=== PATIENT | male | born 1990 | race Caucasian/White ===

== ENCOUNTER 2016-10-12 06:34 | Emergency (ER) | payer OTHER ==
[~2016-10-12] VITALS: Ht 185.4 cm; Wt 144.1 kg
[~2016-10-12 06:34] MED LIST: BACT800T5 PO; CEPH-460 PO
[2016-10-12 06:40] VITALS: BP 157/110; PULSE 92; RESP 16; TEMP 98.7; O2SAT 99
[2016-10-12] MEDS ORDERED: CLIN1CAP5 PO (07:31)
--- NOTE | 2016-10-12 07:52 | PD ---
HPI Chief Complaint: Skin Problem Time Seen by Provider: 07:21 Travel History International Travel<30 days: No Contact w/Intl Traveler<30days: No Traveled to known affect area: No History of Present Illness HPI This patient was seen here 2 days ago for a infected area near his left wrist. He reports that it is spreading. He was prescribed 2 different antibiotics. He filled the Bactrim but not the Keflex. Denies fever or drainage. Symptoms severity is mild to moderate PFSH Past Medical History Tetanus Vaccination: Unknown Social History Alcohol Use: No Tobacco Use: No Substance Use: No Allergies-Medications (Allergen,Severity, Reaction): Coded Allergies: No Known Allergies (Unverified , 10/12/16) Reported Meds & Prescriptions Reported Meds & Active Scripts Active Clindamycin (Clindamycin HCl) 150 Mg Cap 300 Mg PO Q6H Keflex (Cephalexin) 500 Mg Cap 500 Mg PO Q6H 10 Days Bactrim DS (Sulfamethoxazole-Trimethoprim) 800-160 Mg Tab 1 Tab PO BID Review of Systems General / Constitutional: No: Fever HENT: No: Headaches Physical Exam Narrative Psych: Normal mood and affect. Normal insight and judgment. SKIN: Inspection shows no rash or ulcers. Palpation shows no induration or nodules. Left wrist: There is an area of macular erythema over the left wrist. There is a central small indurated area. No fluctuance or drainage. Good range of motion of the wrist. No clinical suspicion of septic joint at the wrist. There is no lymphangitis. Data Data Last Documented VS Vital Signs Date Time Temp Pulse Resp B/P Pulse Ox O2 Delivery O2 Flow Rate FiO2 10/12/16 06:40 98.7 92 16 157/110 99 Room Air MDM Medical Decision Making Medical Screen Exam Complete: Yes Emergency Medical Condition: Yes Medical Record Reviewed: Yes Differential Diagnosis Cellulitis, septic joint, abscess Narrative Course I have reviewed the patient's electronic medical record. Reviewed his visit from 2 days ago. He is currently taking Bactrim. I've added clindamycin as he reports worsening. No septic joint and nothing amenable to incision and drainage. There is mostly macular erythema that seems quite superficial with a central small indurated area Advised to return if this continues to worsen and recommend Worker's Comp. follow-up as this is filed under Worker's Comp. claim Diagnosis Primary Impression: Insect bite of wrist, left, infected Qualified Code: S60.862D - Insect bite of wrist, left, infected, subsequent encounter Additional Instructions: The patient was advised to follow up with their physician and return if they worsen. Med/Other Pt SpecificInfo: Prescription(s) given Scripts Clindamycin 150 Mg [id number] Mg PO Q6H #28 CAP Ref 0 Prov:Umesh Garcia MD 10/12/16 Disposition: 01 DISCHARGE HOME Condition: Stable Umesh Garcia MD Oct 12, 2016 07:52
== END 2016-10-12 07:57 | disposition home or self-care (01) ==
LOC: PHED 06:34
DX: S60.862A Insect bite (nonvenomous) of left wrist, initial encounter (principal); W57.XXXA Bitten or stung by nonvenomous insect and other nonvenomous arthropods, initial encounter
CPT/HCPCS: 99283

== ENCOUNTER 2018-02-28 06:30 | Emergency (ER) | payer SELFPAY ==
[~2018-02-28] VITALS: Ht 185.4 cm; Wt 147.6 kg
[~2018-02-28 06:30] MED LIST changes: +CLIN150C14 PO
[2018-02-28 06:31] VITALS: BP 184/112; PULSE 101; RESP 18; TEMP 98.6; O2SAT 98
--- NOTE | 2018-02-28 07:14 | PD ---
HPI Chief Complaint: Musculoskeletal Complaint Time Seen by Provider: 07:06 Travel History International Travel<30 days: No Contact w/Intl Traveler<30days: No Traveled to known affect area: No History of Present Illness HPI This 27-year-old male is complaining of pain in his left foot. Says he had the pain when he woke up on Wednesday. He had some swelling at that time but he was able to put his shoe on. He was able to walk on the foot for the last couple of days but he was walking with a limp and it was painful for him. This morning the foot is more swollen and unable to put a shoe on. He has not had fever or chills. There is been no trauma. He has no history of arthritis or gout. [facility] [place] Past Medical History Medical History: Denies Significant Hx Cardiovascular Problems: Yes (HTN) Tetanus Vaccination: > 5 Years Influenza Vaccination: No Past Surgical History Surgical History: No Previous Surgery Social History Alcohol Use: No Tobacco Use: No Substance Use: No Allergies-Medications (Allergen,Severity, Reaction): Coded Allergies: No Known Allergies (Unverified Adverse Reaction, Unknown, 02/28/18) Reported Meds & Prescriptions Reported Meds & Active Scripts Active No Active Prescriptions or Reported Medications Review of Systems Except as stated in HPI: all other systems reviewed are Neg General / Constitutional: No: Fever, Chills Eyes: No: Diploplia HENT: No: Headaches Cardiovascular: No: Chest Pain or Discomfort Respiratory: No: Cough Gastrointestinal: No: Vomiting, Diarrhea Genitourinary: No: Urgency Musculoskeletal: Positive: Arthralgias, Pain Skin: No Rash Neurologic: No: Weakness Physical Exam Narrative GENERAL: Well-developed male SKIN: Focused skin assessment warm/dry. HEAD: Atraumatic. Normocephalic. EYES: Pupils equal and round. No scleral icterus. No injection or drainage. ENT: No nasal bleeding or discharge. Mucous membranes pink and moist. NECK: Trachea midline. No JVD. MUSCULOSKELETAL: No obvious deformities. No clubbing. No cyanosis. There is tenderness which is greatest at the left metatarsophalangeal joint. There is mild erythema over this joint the foot is not warm there is diffuse swelling of the left foot. The ankle is not tender or swollen NEUROLOGICAL: Awake and alert. No obvious cranial nerve deficits. Motor grossly within normal limits. Normal speech. PSYCHIATRIC: Appropriate mood and affect; insight and judgment normal. Data Data Last Documented VS Vital Signs Date Time Temp Pulse Resp B/P (MAP) Pulse Ox O2 Delivery O2 Flow Rate FiO2 02/28/18 06:31 98.6 101 18 184/112 (136) 98 Orders Orders Foot, Complete ([id number]) (02/28/18 07:10) MDM Medical Decision Making Medical Screen Exam Complete: Yes Emergency Medical Condition: Yes Medical Record Reviewed: Yes Differential Diagnosis Differential includes foot sprain, gout Narrative Course X-ray is negative. I will recommend ibuprofen and elevation. I do not see evidence of inflammation suggestive of gout and suspect this might be a sprain. There is considerable swelling Diagnosis Primary Impression: Foot sprain Departure Forms: Tests/Procedures, Work Release Enter return to work date: March 02, 2018 Additional Instructions: Keep foot elevated Scripts Ibuprofen (Ibuprofen) 600 Mg Tab 600 MG PO Q6H Y for Pain/Inflammation, #20 TAB 0 Refills Prov: Toan Griffin MD 02/28/18 Disposition: 01 DISCHARGE HOME Condition: Stable Toan Griffin MD February 28, 2018 07:14
--- NOTE | 2018-02-28 07:29 | RADRPT ---
EXAM DATE/TIME: 02/28/2018 07:12 [facility] COMPARISON: No previous studies available for comparison. INDICATIONS : Pain left foot 2nd and 3rd digits, no known injury. MEDICAL HISTORY : None. SURGICAL HISTORY : None. ENCOUNTER: Initial ACUITY: 3 days PAIN SCORE: 8/10 LOCATION: Left 2nd -3rd digits FINDINGS: Three view examination of the left foot demonstrates no soft tissue swelling, dislocation, or fractur e. The tarsal bones appear intact. The interphalangeal and metatarsophalangeal joints are intact. The calcaneus is intact. Bony mineralization is normal. CONCLUSION: 1. No acute findings. Lenard Church MD on February 28, 2018 at 7:23 Board Certified Radiologist. This report was verified electronically.
[2018-02-28] MEDS ORDERED: IBUP-232 PO (07:36)
== END 2018-02-28 07:45 | disposition home or self-care (01) ==
LOC: PHED 06:30
DX: S93.602A Unspecified sprain of left foot, initial encounter (principal); I10 Essential (primary) hypertension; X58.XXXA Exposure to other specified factors, initial encounter
CPT/HCPCS: 73630; 99283